=== PATIENT | female | born 1970 | race Caucasian/White ===

== ENCOUNTER 2021-04-19 05:33 | Day surgery (SDC) | payer BC ==
[2021-04-15 13:30] LABS: BASOPHILS % (AUTO) 0.4 % (0-1); EOSINOPHILS # (AUTO) 0.1 X10'3 (0-0.9); EOSINOPHILS % (AUTO) 1.8 % (0-6); LYMPHOCYTES # (AUTO) 2.9 X10'3 (1.1-4.8); LYMPHOCYTES % (AUTO) 36.3 % (21-51); MEAN CORPUSCULAR HEMOGLOBIN 30.4 PG (27.0-31.0); MEAN CORPUSCULAR HGB CONC 33.4 g/dL (33.0-36.5); MEAN CORPUSCULAR VOLUME 90.9 FL (78-98); MEAN PLATELET VOLUME 6.8 FL (7.4-10.4); MONOCYTES # (AUTO) 0.5 X10'3 (0-0.9); MONOCYTES % (AUTO) 6.3 % (2-12); NEUTROPHILS # (AUTO) 4.4 X10'3 (1.8-7.7); NEUTROPHILS % (AUTO) 55.2 % (42-75); PRE OP HEMATOCRIT 39.4 % (35.0-45.0); PRE OP HEMOGLOBIN 13.2 g/dL (12.0-16.0); PRE OP PLATELET COUNT 350 X10'3 (140-440); RED BLOOD COUNT 4.34 X10'6 (4.20-5.60); RED CELL DISTRIBUTION WIDTH 14.1 % (11.5-14.5)
[2021-04-15 13:43] LABS: ALBUMIN 3.8 G/DL (3.4-5.0); ALBUMIN/GLOBULIN RATIO 1.2 (1.1-1.5); ALKALINE PHOSPHATASE 34 IU/L (46-116); BLOOD UREA NITROGEN 12 MG/DL (7-18); BUN/CREATININE RATIO 12.6 (6.6-38.0); CALCIUM 7.9 MG/DL (8.5-10.1); CHLORIDE 104 MMOL/L (99-107); CREATININE 0.95 MG/DL (0.40-0.90); PRE OP ALT 26 U/L (30-65); PRE OP ANION GAP 10 (8-16); PRE OP AST 15 U/L (10-37); PRE OP BILIRUB, TOTAL 0.4 MG/DL (0.0-1.0); PRE OP GLUCOSE 145 MG/DL (70-104); PRE OP POTASSIUM 3.7 MMOL/L (3.4-5.1); PRE OP SODIUM 138 MMOL/L (135-145); TOTAL CARBON DIOXIDE 24.3 MMOL/L (24-32); TOTAL PROTEIN 6.9 G/DL (6.4-8.2); eGFR 62 ML/MIN
[2021-04-19] VITALS (9 sets, daily range): BP systolic 97–114; BP diastolic 56–73
[~2021-04-19] VITALS: Ht 154.9 cm; Wt 70.5 kg
[~2021-04-19 05:33] MED LIST: ALPR-623 PO; IBUP-1984 PO; SERT25TA PO; SIMV-42 PO; cefazolin/dext.iso 2gm/100ml IV ONE; famotidine 20mg tablet PO ONE; ringers solution, lacted 1,000 ML IV SCH; scopolamine 1mg/72 hr patch TD SCH
[2021-04-19] MEDS ORDERED: LIDOcaine 1% (10mg/ml) 2ml vial ONE (05:51)
[2021-04-19] MEDS ORDERED: BUPIVAcaine/PF 2.5mg/ml (0.25%) 10ml vial ONE (06:47)
[2021-04-19] MEDS ORDERED: LIDOcaine 1% 30ml preserv. free vial ONE (06:47)
[2021-04-19] MEDS ORDERED: rocuronium 10mg/ml inj IV ONE (07:30)
[2021-04-19] MEDS ORDERED: glycopyrrolate 0.2mg/ml inj ONE (07:30)
[2021-04-19] MEDS ORDERED: neostigmine methylsulfate 1 MG/ML 10ml vial ONE (07:30)
[2021-04-19] MEDS ORDERED: dexamethasone sod phosphate 10mg/ml inj ONE (07:30)
[2021-04-19] MEDS ORDERED: sevoflurane 250ml liquid IH ONE (07:30)
[2021-04-19] MEDS ORDERED: fentaNYL/PF 50MCG/1 ML 2ML syringe ONE (07:33)
[2021-04-19] MEDS ORDERED: midazolam 1 mg/ML 2ml injection ONE (07:33)
[2021-04-19] MEDS ORDERED: propofol inj 20 ML IV ONE (07:35)
[2021-04-19] MEDS ORDERED: LIDOcaine 2% (20mg/ml) 5ml vial ONE (07:35)
[2021-04-19] MEDS ORDERED: proCHLORperazine 10 MG/2 ml inj IV PRN (08:15)
[2021-04-19] MEDS ORDERED: meperidine/PF 25mg/ml syringe IV PRN ×3 (08:15)
[2021-04-19] MEDS ORDERED: ringers solution, lacted 1,000 ML IV SCH (08:15)
[2021-04-19] MEDS ORDERED: morphine 4 MG/ML inj SYRINge IV PRN (08:15)
[2021-04-19] MEDS ORDERED: morphine 2 MG/ML inj. syringe IV PRN (08:15)
[2021-04-19] MEDS ORDERED: ondansetron/PF 4mg/2ml inj IV PRN (08:15)
[2021-04-19] MEDS ORDERED: acetaminophen 1,000mg/100ml IV 100 ML IV ONE (08:30)
[2021-04-19] MEDS ORDERED: HYDROcodone/acetaminophen 5mg/325mg tablet PO PRN (08:35)
--- NOTE | 2021-04-19 08:53 | NUR ---
Received from OR via [facility], accompanied by Anesthesiologist Dr. Manzanares and report given by Anesthesiolgist. Patient has 20g to left hand. oxygen at 10L via mask. VSS. Voice raspy. Left buttock has dermabond, CDI. CARR.
[2021-04-19] MEDS ORDERED: ondansetron/PF 4mg/2ml inj ONE (09:06)
--- NOTE | 2021-04-19 09:53 | NUR ---
Patient VSS, states free on nausea and pain. She complains of being cold, temp normal. PIV from right hand removed. Patient dressed and all belongings accounted for with patient. Discharge instructions given and patient signed. Took patient in wheelchair to , [facility]. Discharge instructions given to as well, along with norco prescription. Patient safely assisted into car with all belongings and discharge paperwork.
== END 2021-04-19 09:53 | disposition home or self-care (01) ==
LOC: PAS 05:33
PROVIDERS: ATTEND Surgery
DX: R22.2 Localized swelling, mass and lump, trunk (principal); D17.1 Benign lipomatous neoplasm of skin and subcutaneous tissue of trunk; Z20.822 Contact with and (suspected) exposure to COVID-19; F32.9 Major depressive disorder, single episode, unspecified; F41.9 Anxiety disorder, unspecified; E78.5 Hyperlipidemia, unspecified; G62.9 Polyneuropathy, unspecified; M19.042 Primary osteoarthritis, left hand; M19.041 Primary osteoarthritis, right hand; M16.0 Bilateral primary osteoarthritis of hip; Z90.710 Acquired absence of both cervix and uterus; Z98.890 Other specified postprocedural states; Z79.899 Other long term (current) drug therapy; Z88.4 Allergy status to anesthetic agent; Z72.89 Other problems related to lifestyle; Z87.891 Personal history of nicotine dependence; Z82.49 Family history of ischemic heart disease and other diseases of the circulatory system; Z82.61 Family history of arthritis
CPT/HCPCS: 27043; 36415; 80053; 82948; 85025; 87426; 93005; J0131; J1100; J2001; J2250; J2405; J2704; J2710; J3010; J3490; J7120; U0003; U0005; A4215; A4618; A7000